=== PATIENT | male | born 1970 | race Two or more races ===

== ENCOUNTER 2016-10-28 11:42 | Emergency (ER) | payer SELFPAY ==
[2016-10-28] MEDS ORDERED: IOPAMIDOL 300 (61%) 100 ML VIAL IV ONE (11:43)
[2016-10-28 14:33] LABS: BASO % 0.3 % (0.2-1.0); EOS # 0.3 (0.0-0.5); EOS % 2.8 % (0.9-2.9); HEMATOCRIT 45.9 % (32.0-52.0); HEMOGLOBIN 15.3 gm/l (14.0-18.0); IMM NEUT% 0.3 % (0-1); LYMPH % 11.4 % (15-45); MEAN CELL VOLUME 89.1 fl (80.0-94.0); MEAN CORPUSCULAR HEMOGLOBIN 29.7 pg (27.0-31.0); MEAN CORPUSCULAR HGB CONC 33.3 g/dl (33.0-37.0); MEAN PLATELET VOLUME 10.8 fl (7.4-10.4); MONO # 0.8 (0.0-0.8); MONO % 8.3 % (4-12); NEUT % 76.9 % (43-75); PLATELET COUNT 197 K/mm3 (130-400); RED CELL DISTRIBUTION WIDTH 12.5 % (11.5-14.5)
[2016-10-28 14:42] LABS: CALCIUM 9.1 mg/dL (8.6-10.3)
--- NOTE | 2016-10-28 14:46 | CT ---
NECK SOFT TISSUE W/ CON: 10/28/2016 1:50 PM CLINICAL INDICATION: Cough, sore throat. Headache. COMPARISON: None. (MR) Sequences Performed: None (CT) Scan Technique: Contiguous axial 3 mm images from the AP window through the orbital meatal line are obtained after the uneventful IV administration of contrast. Sagittal and coronal reformations are also obtained this time. Contrast: 100 ml of Isovue-300 contrast administered. FINDINGS: Orbits/Paranasal Sinuses/Skull Base: Normal Nasopharynx: Normal Suprahyoid Neck: Prominence to the bilateral tonsillar pillars is present without focal lesion or abscess. Dental amalgam causes streak artifact limiting assessment. Probable dentures are noted. Infrahyoid Neck: Normal Thyroid: Normal Thoracic Inlet: Normal Lymph Nodes: None Vascular Structures: Normal Other Findings: Normal IMPRESSION: Prominence to the tonsillar pillar is noted bilaterally without evidence of focal lesion or abscess. Exam is otherwise unremarkable. Findings were called to Dr. Rider at approximately 1442 hours on 10/28/2016.
== END 2016-10-28 15:32 | disposition home or self-care (01) ==
LOC: ED 11:42
DX: R51 Headache (principal); M54.2 Cervicalgia
CPT/HCPCS: 85025; 80048; 70491; 99283; 99284; Q9967